=== PATIENT | female | born 1930 | race Caucasian/White ===

== ENCOUNTER 2018-04-08 08:38 | Emergency (ER) | payer OTHER ==
[2018-04-08 10:12] LABS: Absolute Lymphocytes (CBC) 1.6 K/uL (0.7-4.9); Basophils % 0.2 % (0-1.3); Eosinophils % 3.8 % (0-4.4); Hematocrit 39.9 % (36.0-45.0); MCH 29.8 pg (27.0-35.0); MCV 89.9 fL (80-100); MPV 8.3 fL (7.6-11.3); Monocytes % 12.9 % (3.3-12.3); RBC Red Blood Cell Count 4.44 M/uL (3.86-4.86)
[2018-04-08 10:24] LABS: Potassium 3.8 mmol/L (3.5-5.1)
[2018-04-08 10:25] LABS: Albumin 3.1 g/dL (3.4-5.0); Bilirubin Direct 0.1 mg/dL (0-0.2); Bilirubin Total 0.5 mg/dL (0.2-1.0); Protein, Total 7.7 g/dL (6.4-8.2)
[2018-04-08] MEDS ORDERED: DOXYCYCLINE 100 MG CAP PO ONE (10:40)
[2018-04-08] MEDS ORDERED: NA CHLORIDE 0.9% 1,000 ML ONE (10:40)
--- NOTE | 2018-04-08 11:47 | ER ---
Nurse's Notes [facility] Name: Noreen Willson Age: 87 yrs Sex: Female : 1930 Arrival Date: 04/08/2018 Time: 08:43 Bed 4 Private MD: Diagnosis: Dehydration;Urinary tract infection, site not specified Presentation: 04/08 08:43 Presenting complaint: EMS states: Pt was seen at Dr. Stevenson's on Wednesday for UTI and jl7 dehydration. Dr. Stevenson's orders were 1 gram Merrem IVPB bid x12 days. Today she's c/o diarrhea with an excessive foul odor. Transition of care: [facility]. Onset of symptoms was April 04, 2018. Risk Assessment: Do you want to hurt yourself or someone else? Patient reports no desire to harm self or others. Initial Sepsis Screen: Does the patient meet any 2 criteria? No. Patient's initial sepsis screen is negative. Does the patient have a suspected source of infection? No. Patient's initial sepsis screen is negative. Care prior to arrival: None. 08:43 Method Of Arrival: EMS: [facility] jl7 08:43 Acuity: RUBY 3 jl7 Historical: - Allergies: 08:52 No Known Allergies; jl7 - Home Meds: 08:52 acetaminophen 500 mg Oral tab 1 tab every 3 hours [Active]; Benadryl 25 mg Oral cap jl7 [Active]; bisoprolol-hydrochlorothiazide 10-6.25 mg Oral tab 1 tab once daily [Active]; digoxin 125 mcg Oral tab 1 tab once daily [Active]; docusate sodium 100 mg Oral cap 1 cap once daily [Active]; glimepiride 2 mg Oral tab twice daily [Active]; isosorbide mononitrate 30 mg Oral Tb24 1 tab once daily [Active]; Klor-Con M20 20 mEq Oral TbTQ 1 tab once daily [Active]; losartan 100 mg Oral tab 1 tab once daily [Active]; metformin 500 mg Oral tab 0.5 tab 2 times per day [Active]; Xarelto 20 mg oral tab 1 tab once daily [Active]; - PMHx: 08:52 Anxiety; Atrial Fib; Dementia; Diabetes - NIDDM; Hypertension; jl7 - Immunization history:: Adult Immunizations up to date. - Social history:: Smoking status: Patient/guardian denies using tobacco. - Ebola Screening: : No symptoms or risks identified at this time. Screenin:00 Abuse screen: Denies threats or abuse. Denies injuries from another. Nutritional jl7 screening: No deficits noted. Tuberculosis screening: No symptoms or risk factors identified. Fall Risk No fall in past 12 months (0 pts). Secondary diagnosis (15 points) Alzheimer's, dementia, IV access (20 points). Ambulatory Aid- None/Bed Rest/Nurse Assist (0 pts). Gait- Normal/Bed Rest/Wheelchair (0 pts) Mental Status- Overestimates/Forgets Limitations (15 pts.). Total Magallanes Fall Scale indicates High Risk Score (45 or more points). Fall prevention measures have been instituted. Side Rails Up X 2 Placed Close to Nursing Station Frequent Obs/Assessments Occuring Family Present and informed to notify staff if the need to leave the bedside As available patient and family educated on Fall Prevention Program and Strategies. Assessment: 09:00 General: Appears in no apparent distress. uncomfortable, Behavior is calm, cooperative, jl7 appropriate for age. Pain: Denies pain. Neuro: Level of Consciousness is awake, alert, obeys commands, Oriented to person. Cardiovascular: Patient's skin is warm and dry. Respiratory: Airway is patent Respiratory effort is even, unlabored, Respiratory pattern is regular, symmetrical. GI: Patient currently denies nausea, vomiting, Parent/caregiver reports the patient having diarrhea. : Parent/caregiver report the patient having UTI. EENT: No signs and/or symptoms were reported regarding the EENT system. Derm: Skin is pink, warm \T\ dry. Musculoskeletal: No signs and/or symptoms reported regarding the musculoskeletal system. 10:00 Reassessment: No changes from previously documented assessment. Patient and/or family jl7 updated on plan of care and expected duration. Pain level reassessed. Patient is alert, oriented x 3, equal unlabored respirations, skin warm/dry/pink. 10:44 Reassessment: Checked pt for incontinence, pt is clean and dry. jl7 11:30 Reassessment: No changes from previously documented assessment. Patient and/or family jl7 updated on plan of care and expected duration. Pain level reassessed. Patient is alert, oriented x 3, equal unlabored respirations, skin warm/dry/pink. Vital Signs: 08:52 BP 118 / 96; Pulse 92; Resp 16 S; Temp 98.4(O); Pulse Ox 92% on R/A; jl7 09:30 BP 126 / 57; Pulse 86; Resp 18 S; Pulse Ox 97% on R/A; jl7 10:08 BP 141 / 68; Pulse 94; Resp 20 S; Pulse Ox 98% on R/A; Pain 0/10; jl7 10:45 BP 129 / 81; Pulse 89; Resp 16; Pulse Ox 100% ; jl7 11:45 BP 125 / 75; Pulse 85; Resp 16; Pulse Ox 100% on R/A; jl7 12:30 BP 126 / 80; Pulse 85; Resp 16; Pulse Ox 100% ; jl7 ED Course: 08:43 Patient arrived in ED. iw 08:43 Mark Rodriguez RN is Primary Nurse. jl7 08:44 Missael Ortiz PA is PHCP. jr8 08:44 Manish Alfaro MD is Attending Physician. jr8 08:48 Triage completed. jl7 08:52 Arm band placed on right wrist. jl7 09:00 Patient has correct armband on for positive identification. Placed in gown. Bed in low jl7 position. Call light in reach. Side rails up X2. frame polisher on. Pulse ox on. NIBP on. Warm blanket given. 09:00 Maintain EMS IV. Dressing intact. Good blood return noted. Site clean \T\ dry. Gauge \T\ jl 7 site: 20 Left AC. 09:45 Initial lab(s) drawn, by co, sent to lab. jl7 11:46 Maximiliano Stevenson MD is Referral Physician. jr8 12:36 No provider procedures requiring assistance completed. IV discontinued, intact, jl7 bleeding controlled, No redness/swelling at site. Pressure dressing applied. Administered Medications: 10:41 Drug: NS 0.9% 1000 ml Route: IV; Rate: 1000 ml; Site: left antecubital; jl7 11:45 Follow up: Response: No adverse reaction; IV Status: Completed infusion jl7 10:41 Drug: Doxycycline 100 mg Route: PO; jl7 11:45 Follow up: Response: No adverse reaction jl7 Outcome: 11:47 Discharge ordered by . jr8 12:36 Discharged to home via wheelchair, with family. jl7 12:36 Condition: stable 12:36 Discharge instructions given to patient, family, Instructed on discharge instructions, follow up and referral plans. medication usage, Demonstrated understanding of instructions, follow-up care, medications, Prescriptions given X 1. 12:37 Patient left the ED. iw Signatures: Diane Hickey RN RN iw Missael Ortiz PA PA jr8 Mark Rodriguez RN RN jl7 Corrections: (The following items were deleted from the chart) 08:55 08:52 BP 188 / 96; Pulse 92bpm; Resp 16bpm; Spontaneous; Pulse Ox 92% RA; Temp 98.4F jl7 Oral; jl7
--- NOTE | 2018-04-08 11:47 | EDPHYS ---
Physician Documentation [facility] Name: Noreen Willson Age: 87 yrs Sex: Female : 1930 Arrival Date: 04/08/2018 Time: 08:43 Bed 4 Private MD: ED Physician Manish Alfaro HPI: 04/08 08:59 This 87 yrs old Female presents to ER via EMS with complaints of UTI/Diarrhea.jrMarques 08:59 Patients daughter stated that she had recent urine culture for UTI. Stated that her PCP jr8 wanted her shipped from senior care to ED for PICC line placement and IV antibiotics. Stated that for the past week has also had diarrhea that is foul smelling. Denies recent antibiotic use . Severity of symptoms: At their worst the symptoms were moderate in the emergency department the symptoms are unchanged. The patient has experienced a previous episode. The patient has been recently seen by a physician:. Historical: - Allergies: 08:52 No Known Allergies; jl7 - Home Meds: 08:52 acetaminophen 500 mg Oral tab 1 tab every 3 hours [Active]; Benadryl 25 mg Oral cap jl7 [Active]; bisoprolol-hydrochlorothiazide 10-6.25 mg Oral tab 1 tab once daily [Active]; digoxin 125 mcg Oral tab 1 tab once daily [Active]; docusate sodium 100 mg Oral cap 1 cap once daily [Active]; glimepiride 2 mg Oral tab twice daily [Active]; isosorbide mononitrate 30 mg Oral Tb24 1 tab once daily [Active]; Klor-Con M20 20 mEq Oral TbTQ 1 tab once daily [Active]; losartan 100 mg Oral tab 1 tab once daily [Active]; metformin 500 mg Oral tab 0.5 tab 2 times per day [Active]; Xarelto 20 mg oral tab 1 tab once daily [Active]; - PMHx: 08:52 Anxiety; Atrial Fib; Dementia; Diabetes - NIDDM; Hypertension; jl7 - Immunization history:: Adult Immunizations up to date. - Social history:: Smoking status: Patient/guardian denies using tobacco. - Ebola Screening: : No symptoms or risks identified at this time. ROS: 08:59 Eyes: Negative for injury, pain, redness, and discharge, ENT: Negative for injury, jr8 pain, and discharge, Neck: Negative for injury, pain, and swelling, Cardiovascular: Negative for chest pain, palpitations, and edema, Respiratory: Negative for shortness of breath, cough, wheezing, and pleuritic chest pain, Back: Negative for injury and pain, MS/Extremity: Negative for injury and deformity, Skin: Negative for injury, rash, and discoloration, Neuro: Negative for headache, weakness, numbness, tingling, and seizure. 08:59 Abdomen/GI: Positive for diarrhea, Negative for abdominal pain, nausea, vomiting, abdominal cramps, abdominal distension, anorexia, dysphagia, hematemesis, black/tarry stool, rectal pain, rectal bleeding, bowel incontinence, flatulence. 08:59 : Positive for urinary symptoms. Exam: 08:59 Eyes: Pupils equal round and reactive to light, extra-ocular motions intact. Lids and jr8 lashes normal. Conjunctiva and sclera are non-icteric and not injected. Cornea within normal limits. Periorbital areas with no swelling, redness, or edema. ENT: Nares patent. No nasal discharge, no septal abnormalities noted. Tympanic membranes are normal and external auditory canals are clear. Oropharynx with no redness, swelling, or masses, exudates, or evidence of obstruction, uvula midline. Mucous membranes moist. Neck: Trachea midline, no thyromegaly or masses palpated, and no cervical lymphadenopathy. Supple, full range of motion without nuchal rigidity, or vertebral point tenderness. No Meningismus. Cardiovascular: Regular rate and rhythm with a normal S1 and S2. No gallops, murmurs, or rubs. Normal PMI, no JVD. No pulse deficits. Respiratory: Lungs have equal breath sounds bilaterally, clear to auscultation and percussion. No rales, rhonchi or wheezes noted. No increased work of breathing, no retractions or nasal flaring. Abdomen/GI: Soft, non-tender, with normal bowel sounds. No distension or tympany. No guarding or rebound. No evidence of tenderness throughout. Back: No spinal tenderness. No costovertebral tenderness. Full range of motion. Skin: Warm, dry with normal turgor. Normal color with no rashes, no lesions, and no evidence of cellulitis. MS/ Extremity: Pulses equal, no cyanosis. Neurovascular intact. Full, normal range of motion. 08:59 Neuro: Orientation: to person, Mentation: able to follow commands, slow to respond, confused, Cranial nerves: CN I not tested, CN II- XII are normal as tested, extraocular movements are intact, Motor: moves all fours, Sensation: no obvious gross deficits, baseline dementia history . Vital Signs: 08:52 BP 118 / 96; Pulse 92; Resp 16 S; Temp 98.4(O); Pulse Ox 92% on R/A; jl7 09:30 BP 126 / 57; Pulse 86; Resp 18 S; Pulse Ox 97% on R/A; jl7 10:08 BP 141 / 68; Pulse 94; Resp 20 S; Pulse Ox 98% on R/A; Pain 0/10; jl7 10:45 BP 129 / 81; Pulse 89; Resp 16; Pulse Ox 100% ; jl7 11:45 BP 125 / 75; Pulse 85; Resp 16; Pulse Ox 100% on R/A; jl7 12:30 BP 126 / 80; Pulse 85; Resp 16; Pulse Ox 100% ; jl7 MDM: 08:44 Patient medically screened. jr8 10:35 Data reviewed: vital signs, nurses notes, lab test result(s). Data reviewed: diagnostic jr8 data from outside facility, urinalysis, bacteruria. Data interpreted: Pulse oximetry: on room air is 98 %. Counseling: I had a detailed discussion with the patient and/or guardian regarding: the historical points, exam findings, and any diagnostic results supporting the discharge/admit diagnosis, lab results. ED course: Patient is sensitive to both doxycycline and fosfomycin. No need for PICC line and IV antibiotics. . 11:45 ED course: Patient has not had bowel movement. Will need to be collected by [facility] if they jr want stool sample and culture. Patient intravenously hydrated. Will send back to [facility] with antibiotics for UTI. 04/08 08:52 Order name: CBC with Diff; Complete Time: 10:33 jr8 04/08 08:52 Order name: Basic Metabolic Panel; Complete Time: 10:33 jr8 04/08 08:56 Order name: IV; Complete Time: 09:05 jr8 04/08 08:56 Order name: LFT's; Complete Time: 10:33 jr8 Administered Medications: 10:41 Drug: NS 0.9% 1000 ml Route: IV; Rate: 1000 ml; Site: left antecubital; jl7 11:45 Follow up: Response: No adverse reaction; IV Status: Completed infusion jl7 10:41 Drug: Doxycycline 100 mg Route: PO; jl7 11:45 Follow up: Response: No adverse reaction jl7 Disposition: 17:43 Co-signature as Attending Physician, Manish Alfaro MD I agree with the assessment and kdr plan of care. Disposition: 04/08/18 11:47 Discharged to Home. Impression: Dehydration, Urinary tract infection, site not specified. - Condition is Stable. - Discharge Instructions: Dehydration, Elderly, Urinary Tract Infection, Adult. - Prescriptions for Doxycycline Monohydrate 100 mg Oral Tablet - take 1 tablet by ORAL route every 12 hours for 10 days; 20 tablet. - Medication Reconciliation Form, Thank You Letter, Antibiotic Education, Prescription Opioid Use form. - Follow up: Maximiliano Stevenson MD; When: 2 - 3 days; Reason: Recheck today's complaints, Continuance of care, Re-evaluation by your physician. - Problem is new. - Symptoms have improved. Signatures: Dispatcher [employer] EDMS Manish Alfaro MD MD kdr Diane Hickey RN RN iw Missael Ortiz PA PA jr8 Mark Rodriguez RN RN jl7 Corrections: (The following items were deleted from the chart) 12:37 11:47 04/08/2018 11:47 Discharged to Home. Impression: Dehydration; Urinary tract iw infection, site not specified. Condition is Stable. Forms are Medication Reconciliation Form, Thank You Letter, Antibiotic Education, Prescription Opioid Use. Follow up: Maximiliano Stevenson; When: 2 - 3 days; Reason: Recheck today's complaints, Continuance of care, Re-evaluation by your physician. Problem is new. Symptoms have improved. jr8
[2018-04-08 12:40] VITALS: TEMP 98.4
[2018-04-08 12:44] VITALS: BP 129/81; O2SAT 100
== END 2018-04-08 12:37 | disposition home or self-care (01) ==
LOC: ER 08:38
DX: N39.0 Urinary tract infection, site not specified (principal); E86.0 Dehydration; I10 Essential (primary) hypertension; E11.9 Type 2 diabetes mellitus without complications; I48.91 Unspecified atrial fibrillation; F41.9 Anxiety disorder, unspecified; Z79.02 Long term (current) use of antithrombotics/antiplatelets
CPT/HCPCS: 36415; 80048; 80076; 85025; 96360; 99284; J7030

== ENCOUNTER 2018-05-25 19:28 | Inpatient (IN) | payer OTHER ==
[2018-05-25] MEDS ORDERED: NA CHLORIDE 0.9% 1,000 ML ONE (20:11)
[2018-05-25 20:48] LABS: Absolute Monocytes 0.7 K/uL (0.1-1.3); Absolute Neutrophil 14.6 K/uL (1.8-8.0); Basophils % 0.3 % (0-1.3); Eosinophils % 0.5 % (0-4.4); Hematocrit 34.1 % (36.0-45.0); Lymphocytes % 6.1 % (15.3-44.8); MCH 30.2 pg (27.0-35.0); MCV 89.9 fL (80-100); MPV 7.9 fL (7.6-11.3); Monocytes % 4.3 % (3.3-12.3); RBC Red Blood Cell Count 3.79 M/uL (3.86-4.86)
--- NOTE | 2018-05-25 20:56 | EDPHYS ---
Physician Documentation [facility] Name: Noreen Willson Age: 87 yrs Sex: Female : 1930 Arrival Date: 05/25/2018 Time: 19:38 Bed 6 Private MD: ED Physician Ayo Zhang HPI: 05/25 19:57 This 87 yrs old Female presents to ER via Unassigned with complaints of Low genie Blood Sugar. 19:57 The patient or guardian reports altered mental status, generalized weakness. Onset: The genie symptoms/episode began/occurred just prior to arrival. Associated signs and symptoms: Pertinent positives: anorexia. Current symptoms: In the emergency department the patient's symptoms are unchanged from the initial presentation. The patient has not experienced similar symptoms in the past. Historical: - Allergies: 19:46 No Known Allergies; lp1 - Home Meds: 19:46 acetaminophen 500 mg Oral tab 2 tabs PRN for Fever, Pain [Active]; Benadryl 25 mg Oral lp1 cap 1 cap PRN for Insomnia [Active]; bisoprolol-hydrochlorothiazide 10-6.25 mg Oral tab 1 tab once daily for Hypertension [Active]; digoxin 125 mcg Oral tab 1 tab once daily [Active]; docusate sodium 100 mg Oral cap 1 cap PRN for Constipation [Active]; glimepiride 2 mg Oral tab 1 tab twice daily for Type 2 Diabetes Mellitus [Active]; isosorbide mononitrate 30 mg Oral Tb24 1 tab once daily [Active]; Klor-Con M20 20 mEq Oral TbTQ 1 tab once daily [Active]; losartan 100 mg Oral tab 1 tab once daily [Active]; metformin 500 mg Oral tab 0.5 tab 2 times per day [Active]; Miralax 17 gram/dose Oral powd PRN for Constipation [Active]; Xarelto 20 mg Oral tab 1 tab once daily [Active]; 19:48 Macrobid 100 mg Oral cap 1 cap every 12 hours [Active]; lp1 - PMHx: 19:46 Anxiety; Atrial Fib; Dementia; Diabetes - NIDDM; Hypertension; lp1 - PSHx: 19:46 pacemaker; lp1 - Immunization history:: Adult Immunizations up to date. - Social history:: Smoking status: unknown. - Family history:: not pertinent. - Ebola Screening: : No symptoms or risks identified at this time. ROS: 19:57 Constitutional: Negative for fever, chills, and weight loss, Eyes: Negative for injury, genie pain, redness, and discharge, ENT: Negative for injury, pain, and discharge, Neck: Negative for injury, pain, and swelling, Cardiovascular: Negative for chest pain, palpitations, and edema, Respiratory: Negative for shortness of breath, cough, wheezing, and pleuritic chest pain, Abdomen/GI: Negative for abdominal pain, nausea, vomiting, diarrhea, and constipation, Back: Negative for injury and pain, : Negative for injury, bleeding, discharge, and swelling, MS/Extremity: Negative for injury and deformity, Skin: Negative for injury, rash, and discoloration, Psych: Negative for depression, anxiety, suicide ideation, homicidal ideation, and hallucinations, Allergy/Immunology: Negative for hives, rash, and allergies, Endocrine: Negative for neck swelling, polydipsia, polyuria, polyphagia, and marked weight changes, Hematologic/Lymphatic: Negative for swollen nodes, abnormal bleeding, and unusual bruising. 19:57 Neuro: Positive for altered mental status, weakness. Exam: 19:57 Constitutional: This is a well developed, well nourished patient who is awake, alert, genie and in no acute distress. Head/Face: Normocephalic, atraumatic. Eyes: Pupils equal round and reactive to light, extra-ocular motions intact. Lids and lashes normal. Conjunctiva and sclera are non-icteric and not injected. Cornea within normal limits. Periorbital areas with no swelling, redness, or edema. ENT: Nares patent. No nasal discharge, no septal abnormalities noted. Tympanic membranes are normal and external auditory canals are clear. Oropharynx with no redness, swelling, or masses, exudates, or evidence of obstruction, uvula midline. Mucous membranes moist. Neck: Trachea midline, no thyromegaly or masses palpated, and no cervical lymphadenopathy. Supple, full range of motion without nuchal rigidity, or vertebral point tenderness. No Meningismus. Chest/axilla: Normal chest wall appearance and motion. Nontender with no deformity. No lesions are appreciated. Cardiovascular: Regular rate and rhythm with a normal S1 and S2. No gallops, murmurs, or rubs. Normal PMI, no JVD. No pulse deficits. Respiratory: Lungs have equal breath sounds bilaterally, clear to auscultation and percussion. No rales, rhonchi or wheezes noted. No increased work of breathing, no retractions or nasal flaring. Abdomen/GI: Soft, non-tender, with normal bowel sounds. No distension or tympany. No guarding or rebound. No evidence of tenderness throughout. Back: No spinal tenderness. No costovertebral tenderness. Full range of motion. Skin: Warm, dry with normal turgor. Normal color with no rashes, no lesions, and no evidence of cellulitis. MS/ Extremity: Pulses equal, no cyanosis. Neurovascular intact. Full, normal range of motion. Psych: Awake, alert, with orientation to person, place and time. Behavior, mood, and affect are within normal limits. 19:57 Neuro: Orientation: to person, Not oriented to place, time, Mentation: slow to respond, Memory: unable to test, Cranial nerves: no acute changes, Motor: moves all fours, Sensation: unable to test, Deep tendon reflexes are 2+ (normal) in the bilateral brachioradialis, bicep, tricep and patellar and Achilles tendons, seizure activity, is not displayed by the patient. Vital Signs: 19:38 BP 154 / 97; Pulse 78; Resp 20 S; Temp 96.8(TE); Pulse Ox 98% on R/A; cc3 20:00 BP 152 / 106; Pulse 80; Resp 22 S; Pulse Ox 98% on R/A; cc3 21:15 BP 159 / 81; Pulse 81; Resp 23 S; Pulse Ox 98% on R/A; cc3 22:28 BP 180 / 125; Pulse 85; Resp 18 S; Pulse Ox 100% on R/A; cc3 22:47 BP 164 / 133; Pulse 86; Resp 17; Pulse Ox 99% on R/A; cc3 23:00 BP 163 / 89; Pulse 81; Resp 20 S; Pulse Ox 99% on R/A; cc3 MDM: 19:42 Patient medically screened. [facility] 20:01 Data reviewed: vital signs, nurses notes, lab test result(s), EKG, radiologic studies, [facility] CT scan, plain films. 05/25 19:57 Order name: Basic Metabolic Panel [facility] 05/25 19:57 Order name: CBC with Diff [facility] 05/25 19:57 Order name: LFT's [facility] 05/25 19:57 Order name: Magnesium [facility] 05/25 19:57 Order name: NT PRO-BNP [facility] 05/25 19:57 Order name: PT-INR; Complete Time: 21:28 [facility] 05/25 19:57 Order name: Troponin (emerg Dept Use Only); Complete Time: 21:28 [facility] 05/25 19:57 Order name: Lipase; Complete Time: 21:28 [facility] 05/25 19:57 Order name: Blood Culture Adult (2) [facility] 05/25 19:57 Order name: Digoxin; Complete Time: 21:28 [facility] 05/25 19:58 Order name: Basic Metabolic Panel; Complete Time: 21:28 [facility] 05/25 19:58 Order name: CBC with Automated Diff [facility] 05/25 19:58 Order name: Liver (Hepatic) Function; Complete Time: 21:28 [facility] 05/25 19:58 Order name: Magnesium; Complete Time: 21:28 [facility] 05/25 19:57 Order name: XRAY Chest (1 view); Complete Time: 21:05 [facility] 05/25 19:57 Order name: EKG; Complete Time: 19:58 [facility] 05/25 19:57 Order name: Cardiac monitoring; Complete Time: 20:40 [facility] 05/25 19:57 Order name: EKG - Nurse/Tech; Complete Time: 20:40 [facility] 05/25 19:57 Order name: IV Saline Lock; Complete Time: 20:40 [facility] 05/25 19:57 Order name: Labs collected and sent; Complete Time: 20:46 [facility] 05/25 19:57 Order name: O2 Per Protocol; Complete Time: 20:40 [facility] 05/25 19:57 Order name: O2 Sat Monitoring; Complete Time: 20:40 [facility] 05/25 19:57 Order name: CT Head Brain wo Cont; Complete Time: 21:05 [facility] 05/25 19:58 Order name: NT PRO-BNP; Complete Time: 21:28 [facility] 05/25 21:34 Order name: Urine Dipstick--Ancillary (enter results) [place] 05/25 21:56 Order name: Urine Dipstick-Ancillary [facility] 05/25 22:05 Order name: CBC Smear Scan [facility] 05/25 19:57 Order name: Owen; Complete Time: 20:55 [facility] Administered Medications: Discontinued: NS 0.9% 1000 ml IV at 1 bolus Per protocol; 1000 mL bolus 20:30 Drug: NS 0.9% 1000 ml Route: IV; Rate: 1 bolus; Site: right forearm; cc3 21:06 Follow up: IV Status: Order to discontinue infusion; IV Intake: 150ml bp 21:10 Drug: Rocephin - (cefTRIAXone) 1 grams Route: IVPB; Infused Over: 30 mins; Site: right cc3 forearm; 21:30 Follow up: Response: No adverse reaction; IV Status: Completed infusion; IV Intake: [id number] 21:35 Drug: Magnesium Sulfate 1 grams Route: IVPB; Infused Over: 1 hrs; Site: right forearm; cc3 22:35 Follow up: Response: No adverse reaction; IV Status: Completed infusion cc3 Disposition: 05/25/18 20:56 Hospitalization ordered by Fatuma Molina for Inpatient Admission. Preliminary diagnosis are Altered mental status, unspecified, Atrial fibrillation and flutter, Weakness, Hypomagnesemia, Cystitis. - Bed requested for Telemetry/MedSurg (Inpatient). - Status is Inpatient Admission. cc3 - Condition is Fair. - Problem is new. - Symptoms have improved. UTI on Admission? Yes Signatures: Dispatcher [employer] EDMS Lachelle Lares RN RN Ayo Montelongo MD MD cha Pena, Laura, RN RN lp1 Rhoda Bradford cc3 Spencer Espino RN bp Corrections: (The following items were deleted from the chart) 21:30 20:56 Hospitalization Ordered by Fatuma Molina MD for Inpatient Admission. Preliminary genie diagnosis is Altered mental status, unspecified; Atrial fibrillation and flutter; Weakness. Bed requested for Telemetry/MedSurg (Inpatient). Status is Inpatient Admission. Condition is Fair. Problem is new. Symptoms have improved. UTI on Admission? No. genie 21:52 21:30 05/25/2018 20:56 Hospitalization Ordered by Fatuma Molina MD for Inpatient genie Admission. Preliminary diagnosis is Altered mental status, unspecified; Atrial fibrillation and flutter; Weakness; Hypomagnesemia. Bed requested for Telemetry/MedSurg (Inpatient). Status is Inpatient Admission. Condition is Fair. Problem is new. Symptoms have improved. UTI on Admission? No. genie 22:48 21:52 05/25/2018 20:56 Hospitalization Ordered by Fatuma Molina MD for Inpatient kl Admission. Preliminary diagnosis is Altered mental status, unspecified; Atrial fibrillation and flutter; Weakness; Hypomagnesemia; Cystitis. Bed requested for Telemetry/MedSurg (Inpatient). Status is Inpatient Admission. Condition is Fair. Problem is new. Symptoms have improved. UTI on Admission? Yes. [facility] 22:50 22:48 05/25/2018 20:56 Hospitalization Ordered by Fatuma Molina MD for Inpatient kl Admission. Preliminary diagnosis is Altered mental status, unspecified; Atrial fibrillation and flutter; Weakness; Hypomagnesemia; Cystitis. Bed requested for Telemetry/MedSurg (Inpatient). Status is Inpatient Admission. Condition is Fair. Problem is new. Symptoms have improved. UTI on Admission? Yes. 23:30 22:50 05/25/2018 20:56 Hospitalization Ordered by Fatuma Molina MD for Inpatient cc3 Admission. Preliminary diagnosis is Altered mental status, unspecified; Atrial fibrillation and flutter; Weakness; Hypomagnesemia; Cystitis. Bed requested for Telemetry/MedSurg (Inpatient). Status is Inpatient Admission. Condition is Fair. Problem is new. Symptoms have improved. UTI on Admission? Yes. kl
--- NOTE | 2018-05-25 20:56 | ER ---
Nurse's Notes [facility] Name: Noreen Willson Age: 87 yrs Sex: Female : 1930 Arrival Date: 05/25/2018 Time: 19:38 Bed 6 Private MD: Diagnosis: Altered mental status, unspecified;Atrial fibrillation and flutter;Weakness;Hypomagnesemia;Cystitis Presentation: 05/25 19:38 Presenting complaint: EMS states: altered mental status and high blood sugar. lp1 Transition of care: [facility]. Onset of symptoms was May 25, 2018. Risk Assessment: Do you want to hurt yourself or someone else? Patient reports no desire to harm self or others. Initial Sepsis Screen: Does the patient meet any 2 criteria? Altered Mental Status. No. Patient's initial sepsis screen is negative. Does the patient have a suspected source of infection? Yes: Dysuria/Frequency/Urgency/UTI. Care prior to arrival: IV initiated. 22 GA, in the right forearm. 19:38 Method Of Arrival: EMS: [facility] lp1 19:38 Acuity: RUBY 3 lp1 Triage Assessment: 19:38 General: Appears uncomfortable, Behavior is calm, quiet, confused. Pain: Unable to use cc3 pain scale. Patient is disoriented. EENT: No signs and/or symptoms were reported regarding the EENT system. Neuro: Level of Consciousness is awake, alert, confused, Oriented to none. Cardiovascular: Denies chest pain, Patient's skin is warm and dry. Rhythm is atrial fibrillation. Respiratory: Airway is patent Respiratory effort is even, unlabored, Respiratory pattern is regular, symmetrical. GI: Abdomen is round non-distended. : Parent/caregiver report the patient having patient's daughter said the patient is on antibiotic treatment for UTI. Derm: Skin is fragile, with poor turgor Skin is mottled, Rash noted that is on bilateral medial thigh and on the lower abdominal area. Bruising that is on right forearm purple skin discoloration on bilateral lower legs and feet and on right hand. Musculoskeletal: noted internal rotation of bilateral feet. Historical: - Allergies: 19:46 No Known Allergies; lp1 - Home Meds: 19:46 acetaminophen 500 mg Oral tab 2 tabs PRN for Fever, Pain [Active]; Benadryl 25 mg Oral lp1 cap 1 cap PRN for Insomnia [Active]; bisoprolol-hydrochlorothiazide 10-6.25 mg Oral tab 1 tab once daily for Hypertension [Active]; digoxin 125 mcg Oral tab 1 tab once daily [Active]; docusate sodium 100 mg Oral cap 1 cap PRN for Constipation [Active]; glimepiride 2 mg Oral tab 1 tab twice daily for Type 2 Diabetes Mellitus [Active]; isosorbide mononitrate 30 mg Oral Tb24 1 tab once daily [Active]; Klor-Con M20 20 mEq Oral TbTQ 1 tab once daily [Active]; losartan 100 mg Oral tab 1 tab once daily [Active]; metformin 500 mg Oral tab 0.5 tab 2 times per day [Active]; Miralax 17 gram/dose Oral powd PRN for Constipation [Active]; Xarelto 20 mg Oral tab 1 tab once daily [Active]; 19:48 Macrobid 100 mg Oral cap 1 cap every 12 hours [Active]; lp1 - PMHx: 19:46 Anxiety; Atrial Fib; Dementia; Diabetes - NIDDM; Hypertension; lp1 - PSHx: 19:46 pacemaker; lp1 - Immunization history:: Adult Immunizations up to date. - Social history:: Smoking status: unknown. - Family history:: not pertinent. - Ebola Screening: : No symptoms or risks identified at this time. Screenin:38 Abuse screen: Denies threats or abuse. Denies injuries from another. Nutritional cc3 screening: No deficits noted. Tuberculosis screening: No symptoms or risk factors identified. Fall Risk Secondary diagnosis (15 points) dementia, impaired mobility, Ambulatory Aid- None/Bed Rest/Nurse Assist (0 pts). Gait- Impaired (20 pts.). Mental Status- Overestimates/Forgets Limitations (15 pts.). Assessment: 19:40 Reassessment: see triage assessment. cc3 19:41 Reassessment: with out of hospital DNR form from the packet provided by assisted cc3 [facility] to the EMS. 20:00 Reassessment: Patient's daughter named Mary Beth gave her mobile number [phone]. cc3 20:30 Reassessment: Chest xray done bedside. cc3 20:56 Reassessment: Patient for admission under Dr. Ingram, waiting for admission orders. cc3 Patient came back from CT scan department, CT scan of head done as ordered. 21:06 Reassessment: Patient appears in no apparent distress at this time. Dr. Zhang cc3 ordered to discontinue the normal saline infusion. 22:49 Reassessment: Patient appears in no apparent distress at this time. patient comfortably cc3 sleeping, kept undisturbed. 23:00 Reassessment: Patient appears in no apparent distress at this time. Room assigned to cc3 202, called med-surg extension at 1224 and was told to call again after 5-10 minutes. 23:10 Reassessment: Handed over the report to YORDAN Araujo for continuity of care and cc3 management. Patient left ER vitally stable by stretcher escorted by chief cardiopulmonary technologist. Vital Signs: 19:38 BP 154 / 97; Pulse 78; Resp 20 S; Temp 96.8(TE); Pulse Ox 98% on R/A; cc3 20:00 BP 152 / 106; Pulse 80; Resp 22 S; Pulse Ox 98% on R/A; cc3 21:15 BP 159 / 81; Pulse 81; Resp 23 S; Pulse Ox 98% on R/A; cc3 22:28 BP 180 / 125; Pulse 85; Resp 18 S; Pulse Ox 100% on R/A; cc3 22:47 BP 164 / 133; Pulse 86; Resp 17; Pulse Ox 99% on R/A; cc3 23:00 BP 163 / 89; Pulse 81; Resp 20 S; Pulse Ox 99% on R/A; cc3 ED Course: 19:38 Patient arrived in ED. ds1 19:38 Arm band placed on right wrist. cc3 19:40 Maintain EMS IV. Gauge \T\ site: 22 at the right forearm. cc3 19:40 Patient has correct armband on for positive identification. Placed in gown. Bed in low cc3 position. Call light in reach. Side rails up X2. 19:42 Ayo Zhang MD is Attending Physician. genie 20:00 Triage completed. lp1 20:30 CT completed. Patient tolerated procedure well. Patient moved to CT via stretcher. mw3 Patient moved back from CT. 20:41 XRAY Chest (1 view) In Process Unspecified. EDMS 20:43 CT Head Brain wo Cont In Process Unspecified. EDMS 20:53 Divinski, Ianir, MD is Hospitalizing Provider. [facility] 20:54 Owen cath inserted, using sterile technique, [address], balloon inflated, to de gravity drainage, urine specimen collected. 23:10 No provider procedures requiring assistance completed. Patient admitted, IV remains in cc3 place. Administered Medications: Discontinued: NS 0.9% 1000 ml IV at 1 bolus Per protocol; 1000 mL bolus 20:30 Drug: NS 0.9% 1000 ml Route: IV; Rate: 1 bolus; Site: right forearm; cc3 21:06 Follow up: IV Status: Order to discontinue infusion; IV Intake: 150ml bp 21:10 Drug: Rocephin - (cefTRIAXone) 1 grams Route: IVPB; Infused Over: 30 mins; Site: right cc3 forearm; 21:30 Follow up: Response: No adverse reaction; IV Status: Completed infusion; IV Intake: [id number] 21:35 Drug: Magnesium Sulfate 1 grams Route: IVPB; Infused Over: 1 hrs; Site: right forearm; cc3 22:35 Follow up: Response: No adverse reaction; IV Status: Completed infusion cc3 Intake: 21:06 IV: 150ml; Total: 150ml. bp 21:30 IV: 50ml; Total: 200ml. cc3 Outcome: 20:56 Decision to Hospitalize by Provider. genie 23:10 Admitted to Med/surg accompanied by [facility], via stretcher, room 202, with chart, Report cc3 called to YORDAN Araujo 23:10 Condition: stable 23:10 Instructed on the need for admit. 23:30 Patient left the ED. cc3 Signatures: Dispatcher [employer] EDDC Ayo Zhang MD MD cha Sanford, Demi ds1 Caprice Espinosa, RN RN lp1 Mirtha Goncalves mt, Brian RN RN Rozina Miller mw3 Rhoda Bradford cc3 Corrections: (The following items were deleted from the chart) 22:09 20:53 Reassessment: Patient for admission under Dr. Ingram, waiting for admission cc3 orders. cc3 22:31 20:53 Reassessment: Patient for admission under Dr. Ingram, waiting for admission cc3 orders. Patient came back from CT scan department, CT scan of head done as ordered. cc3 23:26 23:00 Reassessment: Room assigned to 202, called med-surg extension at 1224 and was cc3 told to call again after 5-10 minutes. cc3 23:36 19:38 Transition of care: [facility] lp1 cc3
--- NOTE | 2018-05-25 21:02 | RAD REPORT ---
EXAM DESCRIPTION: CT - Head Brain Wo Cont - 05/25/2018 8:43 pm CLINICAL HISTORY: MENTAL STATUS CHANGE Drowsiness COMPARISON: HEAD BRAIN W O CONTRAST dated 07/09/2011 TECHNIQUE: All CT scans are performed using dose optimization technique as appropriate and may inclu de automated exposure control or mA/KV adjustment according to patient size. FINDINGS: No intracranial hemorrhage, hydrocephalus or extra-axial fluid collection.Advanced general ized brain atrophy is present with advanced periventricular and deep white matter chronic microvascul ar ischemic changes.No areas of brain edema or evidence of midline shift. The paranasal sinuses and mastoids are clear. The calvarium is intact. Mild vertebral atherosclerosis . IMPRESSION: No acute intracranial abnormality.
[2018-05-25] MEDS ORDERED: D50W 25 GM/50 ML SYRINGE IV PRN (21:03)
[2018-05-25] MEDS ORDERED: GLUCAGON 1 MG/VIAL IM PRN (21:03)
--- NOTE | 2018-05-25 21:03 | RAD REPORT ---
EXAM DESCRIPTION: RAD - Chest Single View - 05/25/2018 8:41 pm CLINICAL HISTORY: COUGH Chest pain. COMPARISON: Chest Single View dated 08/17/2017; Chest Single View dated 03/25/2017; CHEST SINGLE VIEW dated 07/09/2011 FINDINGS: Portable technique limits examination quality. Mild interstitial pulmonary edema is seen. The heart is moderately enlarged in size with a dual lead pacer device present. No displaced fractures.Aortic atherosclerosis. IMPRESSION: Mild CHF versus volume overload pattern.
[2018-05-25 21:10] LABS: Protime INR 2.34
[2018-05-25] MEDS ORDERED: CEFTRIAXONE 1000 MG/VIAL ONE (21:18)
[2018-05-25] MEDS ORDERED: NA CHLORIDE 0.9% 50 ML IV ONE (21:18)
[2018-05-25 21:23] LABS: ALT/SGPT 17 U/L (12-78); AST/SGOT 19 U/L (15-37); Albumin 3.2 g/dL (3.4-5.0); Alkaline Phosphatase 72 U/L (45-117); BUN Blood Urea Nitrogen 23 mg/dL (7-18); Bicarbonate 26 mmol/L (21-32); Bilirubin Direct 0.1 mg/dL (0-0.2); Bilirubin Total 0.6 mg/dL (0.2-1.0); Glucose Level 279 mg/dL (74-106); Lipase 105 U/L (73-393); Magnesium 1.5 mg/dL (1.8-2.4); NT PRO-BNP 2833 pg/mL (<450); Potassium 4.4 mmol/L (3.5-5.1); Protein, Total 8.3 g/dL (6.4-8.2); Sodium Level 137 mmol/L (136-145); Troponin (Emerg Dept Use Only) < 0.02 ng/mL (0.0-0.045)
[2018-05-25] MEDS ORDERED: MAGNESIUM SULFATE 1 gm IVPB 1 GM/100 ML BAG IV ONE (21:42)
[2018-05-25 21:55] LABS: Urine Blood 1+ (NEG); Urine Glucose 3+ (NEG); Urine Protein 3+ (NEG); Urine Specific Gravity 1.025 (1.005-1.030)
[2018-05-25 22:05] LABS: Blood Morphology Comment NOT SEEN (NOT SEEN); Platelet Estimate ADEQ; Urine White Blood Cell Casts OK
--- NOTE | 2018-05-25 22:12 | P.HP ---
Certification for Inpatient Patient admitted to: Observation With expected LOS: <2 Midnights Practitioner: I am a practitioner with admitting privileges, knowledge of patient current condition, hospital course, and medical plan of care. Services: Services provided to patient in accordance with Admission requirements found in Title 42 Section 412.3 of the Code of Federal Regulations Patient History Date of Service: 05/25/18 Reason for admission: Acute encephalopathy History of Present Illness: Ms Willson is a 7-year-old woman with history of diabetes mellitus types 2 insulin-dependent, atrial fibrillation, hypertension, dementia, resident of a local skilled nursing. This afternoon the patient became more lethargic, weak and sleepy than usual. There is no history of fever or chills. No cough or shortness of breath. No nausea, vomiting or diarrhea either. Lab work remarkable for leukocytosis 16.5 K, chest-x-ray possible volume overload, UA abnormal consistent with UTI. At my encounter, the patient remained obtunded responsive to verbal and noxious stimulus. Allergies No Known Allergies Allergy (Verified 12/06/14 10:01) Home medications list reviewed: Yes Home Medications: Digoxin [Lanoxin*] 1 tab PO DAILY 10/19/14 Glimepiride [Amaryl] 0.5 tab PO DAILY 10/19/14 Losartan Potassium [Cozaar] 1 tab PO DAILY 10/19/14 Simvastatin 1 tab PO BEDTIME 10/19/14 Sitagliptin Phosphate [Januvia*] 1 tab PO DAILY 10/19/14 Warfarin Sodium [Coumadin*] 1 mg PO DAILY 5 PM 12/06/14 Warfarin Sodium [Coumadin*] 2 mg PO T,TH,S 12/06/14 Warfarin Sodium [Coumadin*] 4 mg PO M,,12/06/14 - Past Medical/Surgical History Diabetic: No -: Diabetic -: HTN -: Afib -: Hyperlipidemia -: Hysterectomy - Family History Family History: Reviewed- Non-Contributory - Social History Alcohol use: No CD- Drugs: No Caffeine use: Yes Place of Residence: Longterm Review of Systems 10-point ROS is otherwise unremarkable Physical Examination - Physical Exam General: In no apparent distress, Other (obtunded) HEENT: Atraumatic, PERRLA, Mucous membr. moist/pink, EOMI, Sclerae nonicteric Neck: Supple, 2+ carotid pulse no bruit, No LAD, Without JVD or thyroid abnormality Respiratory: Clear to auscultation bilaterally, Normal air movement, Crackles/ rales Cardiovascular: Regular rate/rhythm, Normal S1 S2 Gastrointestinal: Normal bowel sounds, No tenderness Musculoskeletal: No tenderness Integumentary: No rashes Neurological: Normal strength at 5/5 x4 extr, Sensation intact, Normal affect, Dementia Lymphatics: No axilla or inguinal lymphadenopathy - Studies Laboratory Data (last 24 hrs) 05/25/18 20:30: PT 27.9 H, INR 2.34 05/25/18 20:30: WBC 16.5 H, Hgb 11.4 L, Hct 34.1 L, Plt Count 254 05/25/18 20:30: Sodium 137, Potassium 4.4, BUN 23 H, Creatinine 1.00, Glucose 279 H, Magnesium 1.5 L, Total Bilirubin 0.6, AST 19, ALT 17, Alkaline Phosphatase 72, Lipase 105 Assessment and Plan - Plan Assessment: 1. Acute encephalopathy 2. UTI 3. Diabetes mellitus 4. Dementia 5. Chronic AFib Plan: Will admit the patient to the hospital in order to start IV antibiotic for UTI, will also need gentle hydration. Since the patient is obtunded, at this point she is not safe order diet. Will consult speech therapist for swallow evaluation. Blood and urine cultures are in process. - Advance Directives Does patient have a Living Will: No Does patient have a Durable POA for Healthcare: Yes
[2018-05-25] MEDS ORDERED: ACETAMINOPHEN 500 MG TAB PO PRN (23:43)
[2018-05-25] MEDS ORDERED: ONDANSETRON 4 MG/2 ML VIAL IV PRN (23:43)
[2018-05-26] MEDS: NA CHLORIDE 0.9% 1,000 ML IV SCH ×3 (00:12→16:15)
[2018-05-26 03:29] LABS: Urine Appearance TURBID; Urine Bilirubin NEGATIVE (NEG); Urine Blood 2+ (NEG); Urine Color YELLOW; Urine Glucose NEGATIVE (NEG); Urine Protein 2+ (NEG); Urine Specific Gravity 1.015 (1.005-1.030); Urine Urobilinogen 0.2 mg/dL (0.2-1.0); Urine pH 6.5 (5.0-7.0)
[2018-05-26 03:35] LABS: Urine Microscopic Reflex ORDER UMIC
[2018-05-26 03:47] LABS: Urine Bacteria LOADED /HPF (<20); Urine Culture Reflex Order REFLEXED; Urine RBC <5 /HPF (NONE SEEN)
[2018-05-26 05:06] LABS: Absolute Lymphocytes (CBC) 1.3 K/uL (0.7-4.9); Absolute Monocytes 0.9 K/uL (0.1-1.3); Absolute Neutrophil 9.9 K/uL (1.8-8.0); Basophils % 0.4 % (0-1.3); Eosinophils % 2.5 % (0-4.4); Hematocrit 32.4 % (36.0-45.0); Lymphocytes % 10.7 % (15.3-44.8); MCH 30.4 pg (27.0-35.0); MCV 87.9 fL (80-100); MPV 7.8 fL (7.6-11.3); Monocytes % 7.2 % (3.3-12.3); RBC Red Blood Cell Count 3.68 M/uL (3.86-4.86)
[2018-05-26 05:32] LABS: Magnesium 1.8 mg/dL (1.8-2.4); Potassium 3.8 mmol/L (3.5-5.1)
[2018-05-26] MEDS: HYDRALAZINE HCL 20 MG/ML VIAL IV PRN (05:45)
[2018-05-26] MEDS ORDERED: MAGNESIUM SULFATE 1 gm IVPB 1 GM/100 ML BAG IV ONE (07:00)
[2018-05-26] MEDS ORDERED: INSULIN -REGULAR HUMAN 50 UNIT/0.5 ML ML SQ SCH ×2 (07:30→09:19)
[2018-05-26] MEDS ORDERED: KCL 20 MEQ/100 mL IVPB 20 MEQ/100 ML BAG IV SCH (08:15)
[2018-05-26] MEDS ORDERED: CEFTRIAXONE 1 GM/NS 50 ML 1 GM/50 ML BAG IV SCH (09:00)
[2018-05-26] MEDS: INSULIN -REGULAR HUMAN 50 UNIT/0.5 ML ML SQ SCH ×3 (11:30→21:00)
--- NOTE | 2018-05-26 11:34 | P.PN ---
Subjective Date of Service: 05/26/18 Chief Complaint: Acute encephalopathy Patient seen and examined at bedside with RN. Chart reviewed. Case discussed with family member at bedside. Currently patient is disoriented at this time. At baseline patient does have dementia however able to recognize the daughter. This morning daughter has no complaints to offer states that she has frequent UTIs and causes this acute exacerbation of her dementia at that time. Review of Systems 10-point ROS is otherwise unremarkable Physical Examination - Vital Signs Temperature: 98.1 F Blood Pressure: 135/64 Pulse: 79 Respirations: 17 Pulse Ox (%): 98 - Physical Exam General: Alert, In no apparent distress, Demented, Confused HEENT: Atraumatic, PERRLA, EOMI Neck: Supple, JVD not distended Respiratory: Clear to auscultation bilaterally, Normal air movement Cardiovascular: Regular rate/rhythm, Normal S1 S2 Gastrointestinal: Normal bowel sounds, No tenderness Musculoskeletal: No tenderness Integumentary: No rashes Neurological: Normal speech, Normal tone, Normal affect Lymphatics: No axilla or inguinal lymphadenopathy - Studies Laboratory Data (last 24 hrs) 05/25/18 20:30: PT 27.9 H, INR 2.34 05/25/18 20:30: WBC 16.5 H, Hgb 11.4 L, Hct 34.1 L, Plt Count 254 05/25/18 20:30: Sodium 137, Potassium 4.4, BUN 23 H, Creatinine 1.00, Glucose 279 H, Magnesium 1.5 L, Total Bilirubin 0.6, AST 19, ALT 17, Alkaline Phosphatase 72, Lipase 105 Medications List Reviewed: Yes Assessment And Plan - Plan Assessment and plan 1. Acute toxic metabolic encephalopathy -most likely secondary to UTI -at baseline patient does have dementia however currently acutely ill -today still disoriented -will monitor closely 2. UTI -history of recurrent UTIs with E. coli -currently on IV antibiotics -will continue until cultures and sensitivity results 3. Diabetes mellitus type 2 without any complications -insulin sliding scale 4. Dementia -at baseline patient is alert and oriented x1 does recognize person and self 5. Chronic AFib: -will restart home medication at this time. Currently rate and rhythm control Disposition: Awaiting clinical improvement at this time Discharge Plan: Residential Plan to discharge in: 48 Hours - Code Status/Comfort Care Code Status Assessed: Yes Critical Care: No
[2018-05-26] MEDS ORDERED: DOCUSATE NA 100 MG CAP PO PRN (11:37)
[2018-05-26] MEDS: CEFTRIAXONE/SWI 1gm 1 GM/10 ML SYR IV SCH (21:04)
[2018-05-27] MEDS: NA CHLORIDE 0.9% 1,000 ML IV SCH ×4 (01:50→15:43)
[2018-05-27 06:04] LABS: BUN Blood Urea Nitrogen 14 mg/dL (7-18); Bicarbonate 26 mmol/L (21-32); Glucose Level 125 mg/dL (74-106); Magnesium 1.6 mg/dL (1.8-2.4); Potassium 3.7 mmol/L (3.5-5.1); Sodium Level 145 mmol/L (136-145)
--- NOTE | 2018-05-27 06:58 | EKG ---
Test Date: 2018-05-25 Test Time: 20:13:46 Sheet Fed Printer: MODESTA MEASUREMENT RESULTS: Intervals: Rate: 88 MO: QRSD: 86 QT: 348 QTc: 421 Trevor: P: MO: QRS: 75 T: 10 INTERPRETIVE STATEMENTS: Demand pacemaker, interpretation is based on intrinsic rhythm Atrial fibrillation with premature ventricular or aberrantly conducted complexes ST & T wave abnormality, consider anterior ischemia or digitalis effect Abnormal ECG Compared to ECG 03/25/2017 09:38:33 Ventricular premature complex(es) now present ST (T wave) deviation still present Possible ischemia still present Electronically Signed On 05-27-18 06:55:11 CDT by Donnie Young
[2018-05-27] MEDS ORDERED: MAGNESIUM SULFATE 1 gm IVPB 1 GM/100 ML BAG IV ONE (07:15)
[2018-05-27] MEDS: INSULIN -REGULAR HUMAN 50 UNIT/0.5 ML ML SQ SCH ×4 (07:30→20:09)
[2018-05-27] MEDS ORDERED: KCL 20 MEQ/100 mL IVPB 20 MEQ/100 ML BAG IV SCH (08:30)
[2018-05-27] MEDS ORDERED: POLYETHYL GLY 3350 17 GM/DOSE PO PRN (09:00)
[2018-05-27] MEDS: BISOPROLOL/HCTZ 5/6.25MG TAB PO SCH (09:04)
[2018-05-27] MEDS: BISOPROLOL 5 MG TABLET PO SCH (09:04)
[2018-05-27] MEDS: RIVAROXABAN 20 MG TABLET PO SCH (09:05)
[2018-05-27] MEDS: ISOSORBIDE MONO SR 30 MG TAB PO SCH (09:05)
[2018-05-27] MEDS: DIGOXIN 0.125 MG TABLET PO SCH (09:05)
[2018-05-27] MEDS: LOSARTAN POTASSIUM 50 MG TABLET PO SCH (09:05)
--- NOTE | 2018-05-27 12:09 | P.PN ---
Subjective Date of Service: 05/27/18 Chief Complaint: Acute encephalopathy Patient seen and examined at bedside with RN. Chart reviewed. Case discussed with family member at bedside. Currently patient is disoriented. Pt was able to feed herself but does not recognize who she is. Review of Systems 10-point ROS is otherwise unremarkable Physical Examination - Vital Signs Temperature: 98.4 F Blood Pressure: 173/79 Pulse: 83 Respirations: 17 Pulse Ox (%): 98 - Physical Exam General: Alert, In no apparent distress, Confused HEENT: Atraumatic, PERRLA, EOMI Neck: Supple, JVD not distended Respiratory: Clear to auscultation bilaterally, Normal air movement Cardiovascular: Regular rate/rhythm, Normal S1 S2 Gastrointestinal: Normal bowel sounds, No tenderness Musculoskeletal: No tenderness Integumentary: No rashes Neurological: Normal speech, Normal tone, Normal affect Lymphatics: No axilla or inguinal lymphadenopathy - Studies Laboratory Data (last 24 hrs) 05/27/18 05:30: Sodium 145, Potassium 3.7, BUN 14, Creatinine 0.50 L, Glucose 125 H, Magnesium 1.6 L Microbiology Data (last 24 hrs): 05/25/18 20:55 Blood - Blood Anaerobic Blood Culture - Final Medications List Reviewed: Yes Assessment And Plan - Plan Assessment and plan 1. Acute toxic metabolic encephalopathy -most likely secondary to UTI -at baseline patient does have dementia however currently acutely ill -today still disoriented -will monitor closely 2. UTI -history of recurrent UTIs with E. coli -currently on IV antibiotics -will continue until cultures and sensitivity results 3. Diabetes mellitus type 2 without any complications -insulin sliding scale 4. Dementia -at baseline patient is alert and oriented x1 does recognize person and self 5. Chronic AFib: -will restart home medication at this time. Currently rate and rhythm control Disposition: Awaiting clinical improvement at this time Discharge Plan: Long-Term Plan to discharge in: 48 Hours - Code Status/Comfort Care Code Status Assessed: Yes Critical Care: No
[2018-05-27] MEDS: CEFTRIAXONE/SWI 1gm 1 GM/10 ML SYR IV SCH (20:02)
[2018-05-27] MEDS: GLUCERNA SHAKE 237 ML CAN PO SCH (20:05)
[2018-05-28] MEDS: NA CHLORIDE 0.9% 1,000 ML IV SCH (00:41)
[2018-05-28] MEDS: HYDRALAZINE HCL 20 MG/ML VIAL IV PRN ×2 (03:29→23:59)
[2018-05-28 06:31] LABS: BUN Blood Urea Nitrogen 13 mg/dL (7-18); Bicarbonate 25 mmol/L (21-32); Glucose Level 147 mg/dL (74-106); Potassium 3.4 mmol/L (3.5-5.1); Sodium Level 138 mmol/L (136-145)
[2018-05-28 06:33] LABS: Magnesium 1.4 mg/dL (1.8-2.4)
[2018-05-28] MEDS ORDERED: Magnesium Sulfate 2gm IVPB 2 G/50 ML BAG IV ONE (06:48)
[2018-05-28] MEDS ORDERED: POTASSIUM 25 MEQ EFFERV TAB PO ONE (06:49)
[2018-05-28] MEDS: INSULIN -REGULAR HUMAN 50 UNIT/0.5 ML ML SQ SCH ×4 (07:30→20:15)
[2018-05-28] MEDS: BISOPROLOL 5 MG TABLET PO SCH (08:39)
[2018-05-28] MEDS: DIGOXIN 0.125 MG TABLET PO SCH (08:40)
[2018-05-28] MEDS: BISOPROLOL/HCTZ 5/6.25MG TAB PO SCH (08:40)
[2018-05-28] MEDS: LOSARTAN POTASSIUM 50 MG TABLET PO SCH (08:40)
[2018-05-28] MEDS: ISOSORBIDE MONO SR 30 MG TAB PO SCH (08:40)
[2018-05-28] MEDS: RIVAROXABAN 20 MG TABLET PO SCH (08:40)
[2018-05-28] MEDS: GLUCERNA SHAKE 237 ML CAN PO SCH ×2 (08:41→20:32)
--- NOTE | 2018-05-28 11:12 | P.PN ---
Subjective Date of Service: 05/28/18 Chief Complaint: Dementia and ESBL E coli Subjective: Improving (Patient's condition is stable) Review of Systems is unable to be obtained Physical Examination - Vital Signs Temperature: 98.2 F Blood Pressure: 125/85 Pulse: 99 Respirations: 17 Pulse Ox (%): 95 - Physical Exam General: Alert, In no apparent distress Neck: Supple Respiratory: Clear to auscultation bilaterally Cardiovascular: No edema, Normal pulses - Studies Medications List Reviewed: Yes Assessment & Plan - Problems (Diagnosis) (1) UTI (urinary tract infection) Onset Date: 05/26/18 Current Visit: Yes Status: Acute Plan: Patient has E coli, ESBL start on meropenem (2) Acute encephalopathy Onset Date: 05/26/18 Current Visit: Yes Status: Acute Plan: Patient's encephalopathy has improved patient is not coherent history of AFib and is fully anti coagulated add p.o. thymine ambulate
[2018-05-28] MEDS: THIAMINE HCL 100 MG TABLET PO SCH (12:03)
[2018-05-28] MEDS: Meropenem 500 MG in NA CHLORIDE 0.9% 100 ML IV SCH ×2 (12:03→17:17)
[2018-05-29] MEDS: Meropenem 500 MG in NA CHLORIDE 0.9% 100 ML IV SCH ×3 (00:01→18:36)
[2018-05-29] MEDS ORDERED: LIDOCAINE 1% MPF 5 ML VIAL IM PRN (02:00)
[2018-05-29] MEDS ORDERED: SODIUM CHLORIDE 0.9% 10ML INJ IV PRN ×2 (02:00)
[2018-05-29 06:12] LABS: BUN Blood Urea Nitrogen 11 mg/dL (7-18); Bicarbonate 28 mmol/L (21-32); Glucose Level 183 mg/dL (74-106); Potassium 3.7 mmol/L (3.5-5.1); Sodium Level 137 mmol/L (136-145)
[2018-05-29] MEDS ORDERED: KCL 20 MEQ/100 mL IVPB 20 MEQ/100 ML BAG IV SCH (07:00)
[2018-05-29] MEDS: INSULIN -REGULAR HUMAN 50 UNIT/0.5 ML ML SQ SCH ×4 (07:30→20:17)
--- NOTE | 2018-05-29 08:36 | RAD REPORT ---
EXAM DESCRIPTION: RAD - Chest Single View - 05/28/2018 11:30 pm CLINICAL HISTORY: PICC line placement The final report was delayed due to PACs and/or Fluency technical problems that existed at the time of the study or during expected/usual dictation time period. It is unknown if a verbal report was pro vided prior to this dictation. COMPARISON: Portable chest May 25 TECHNIQUE: AP portable chest image was obtained 2147 hours . FINDINGS: Right upper extremity PICC line has been placed. Tip is in the mid SVC. Patchy interstitial and alveolar lung parenchymal opacification present and stable. Heart size and va sculature are stable. No measurable pleural effusion and no pneumothorax. No gross bony abnormality s een. No acute aortic findings suspected. IMPRESSION: Right upper extremity PICC line in place with tip mid SVC. Lung parenchymal opacification has not changed.
[2018-05-29] MEDS: GLUCERNA SHAKE 237 ML CAN PO SCH ×2 (09:00→20:13)
[2018-05-29] MEDS: BISOPROLOL/HCTZ 5/6.25MG TAB PO SCH (09:00)
[2018-05-29] MEDS: SODIUM CHLORIDE 0.9% 10ML INJ IV SCH ×2 (09:00→20:12)
[2018-05-29] MEDS: RIVAROXABAN 20 MG TABLET PO SCH ×2 (09:00→10:05)
[2018-05-29] MEDS: LOSARTAN POTASSIUM 50 MG TABLET PO SCH (10:04)
[2018-05-29] MEDS: DIGOXIN 0.125 MG TABLET PO SCH (10:05)
[2018-05-29] MEDS: ISOSORBIDE MONO SR 30 MG TAB PO SCH (10:05)
[2018-05-29] MEDS: BISOPROLOL 5 MG TABLET PO SCH (10:06)
[2018-05-29] MEDS: THIAMINE HCL 100 MG TABLET PO SCH (10:06)
--- NOTE | 2018-05-29 10:22 | P.PN ---
Subjective Date of Service: 05/29/18 Chief Complaint: Dementia and ESBL E coli Subjective: Improving (Doing well no new complaints eating satisfactorily) Review of Systems is unable to be obtained Physical Examination - Vital Signs Temperature: 97 F Blood Pressure: 137/76 Pulse: 90 Respirations: 16 Pulse Ox (%): 95 - Physical Exam General: Alert Respiratory: Clear to auscultation bilaterally Cardiovascular: No edema, Normal S1 S2 - Studies Microbiology Data (last 24 hrs): 05/26/18 03:20 Clean Catch Urine [place] Count - Final >100,000 CFU/ML. 05/26/18 03:20 Clean Catch Urine - Final Escherichia Coli Enterococcus Faecalis Medications List Reviewed: Yes Assessment & Plan - Problems (Diagnosis) (1) UTI (urinary tract infection) Onset Date: 05/26/18 Current Visit: Yes Status: Acute Plan: Patient has ESBL a PICC line was put in yesterday continue with meropenem patient is nonverbal blood pressure was elevated yesterday also has Enterococcus in the urine at oral amoxicillin labs reviewed Qualifiers: Urinary tract infection type: acute cystitis (2) Acute encephalopathy Onset Date: 05/26/18 Current Visit: Yes Status: Acute Plan: Patient's encephalopathy has improved patient is not coherent history of AFib and is fully anti coagulated add p.o. thymine ambulate
[2018-05-30] MEDS: Meropenem 500 MG in NA CHLORIDE 0.9% 100 ML IV SCH ×3 (00:15→17:30)
[2018-05-30 05:38] LABS: BUN Blood Urea Nitrogen 19 mg/dL (7-18); Bicarbonate 30 mmol/L (21-32); Glucose Level 176 mg/dL (74-106); Potassium 4.3 mmol/L (3.5-5.1); Sodium Level 140 mmol/L (136-145)
[2018-05-30] MEDS: INSULIN -REGULAR HUMAN 50 UNIT/0.5 ML ML SQ SCH ×4 (07:30→20:24)
[2018-05-30] MEDS: RIVAROXABAN 20 MG TABLET PO SCH (09:00)
[2018-05-30] MEDS: LOSARTAN POTASSIUM 50 MG TABLET PO SCH (10:00)
[2018-05-30] MEDS: SODIUM CHLORIDE 0.9% 10ML INJ IV SCH ×2 (10:00→20:21)
[2018-05-30] MEDS: GLUCERNA SHAKE 237 ML CAN PO SCH ×2 (10:00→20:24)
[2018-05-30] MEDS: BISOPROLOL/HCTZ 5/6.25MG TAB PO SCH (10:00)
[2018-05-30] MEDS: DIGOXIN 0.125 MG TABLET PO SCH (10:00)
[2018-05-30] MEDS: THIAMINE HCL 100 MG TABLET PO SCH (10:00)
[2018-05-30] MEDS: ISOSORBIDE MONO SR 30 MG TAB PO SCH (10:00)
--- NOTE | 2018-05-30 12:51 | P.PN ---
Subjective Date of Service: 05/30/18 Chief Complaint: Dementia and ESBL E coli Patient seen and examined at bedside with RN. Chart reviewed. Case discussed with family member at bedside. Currently patient is at baseline. Review of Systems 10-point ROS is otherwise unremarkable Physical Examination - Vital Signs Temperature: 97.6 F Blood Pressure: 163/75 Pulse: 91 Respirations: 18 Pulse Ox (%): 96 - Physical Exam General: Alert, In no apparent distress, Demented HEENT: Atraumatic, PERRLA, EOMI Neck: Supple, JVD not distended Respiratory: Clear to auscultation bilaterally, Normal air movement Cardiovascular: Regular rate/rhythm, Normal S1 S2 Gastrointestinal: Normal bowel sounds, No tenderness Musculoskeletal: No tenderness Integumentary: No rashes Neurological: Normal speech, Normal tone, Normal affect Lymphatics: No axilla or inguinal lymphadenopathy - Studies Medications List Reviewed: Yes Assessment And Plan - Plan Assessment and plan 1. Acute toxic metabolic encephalopathy -most likely secondary to UTI -at baseline now 2. UTI -history of recurrent UTIs with E. coli multi-drug resistant organism -currently on IV meropenem -will need IV [facility]em [facility] 3. Diabetes mellitus type 2 without any complications -insulin sliding scale 4. Dementia -at baseline now 5. Chronic AFib: -will restart home medication at this time. Currently rate and rhythm control Disposition: Awaiting arrangements for antibiotics at the [facility]. Will discharge once antibiotics has been set up. Discharge Plan: Retirement Plan to discharge in: 24 Hours - Code Status/Comfort Care Code Status Assessed: Yes Critical Care: No
[2018-05-31] MEDS: Meropenem 500 MG in NA CHLORIDE 0.9% 100 ML IV SCH ×3 (00:15→18:03)
[2018-05-31] MEDS: INSULIN -REGULAR HUMAN 50 UNIT/0.5 ML ML SQ SCH ×4 (07:30→20:17)
[2018-05-31] MEDS: LOSARTAN POTASSIUM 50 MG TABLET PO SCH (11:10)
[2018-05-31] MEDS: RIVAROXABAN 20 MG TABLET PO SCH (11:10)
[2018-05-31] MEDS: GLUCERNA SHAKE 237 ML CAN PO SCH ×2 (11:15→20:15)
[2018-05-31] MEDS: ISOSORBIDE MONO SR 30 MG TAB PO SCH (11:15)
[2018-05-31] MEDS: DIGOXIN 0.125 MG TABLET PO SCH (11:16)
[2018-05-31] MEDS: BISOPROLOL/HCTZ 5/6.25MG TAB PO SCH (11:17)
[2018-05-31] MEDS: THIAMINE HCL 100 MG TABLET PO SCH (11:17)
[2018-05-31] MEDS: SODIUM CHLORIDE 0.9% 10ML INJ IV SCH ×2 (11:17→20:15)
--- NOTE | 2018-05-31 13:19 | P.PN ---
Subjective Date of Service: 05/31/18 Chief Complaint: Dementia and ESBL E coli Patient seen and examined at bedside with RN. Chart reviewed. Case discussed with family member at bedside. Currently patient is at baseline. Review of Systems 10-point ROS is otherwise unremarkable Physical Examination - Vital Signs Temperature: 98.3 F Blood Pressure: 159/68 Pulse: 98 Respirations: 16 Pulse Ox (%): 95 - Physical Exam General: Alert, In no apparent distress HEENT: Atraumatic, PERRLA, EOMI Neck: Supple, JVD not distended Respiratory: Clear to auscultation bilaterally, Normal air movement Cardiovascular: Regular rate/rhythm, Normal S1 S2 Gastrointestinal: Normal bowel sounds, No tenderness Musculoskeletal: No tenderness Integumentary: No rashes Neurological: Normal speech, Normal tone, Normal affect Lymphatics: No axilla or inguinal lymphadenopathy - Studies Microbiology Data (last 24 hrs): 05/25/18 20:55 Blood - Blood Aerobic Blood Culture - Final No growth in 5 days. 05/25/18 20:55 Blood - Blood Anaerobic Blood Culture - Final 05/25/18 20:30 Blood - Blood Aerobic Blood Culture - Final No growth in 5 days. 05/25/18 20:30 Blood - Blood Anaerobic Blood Culture - Final No growth in 5 days. Medications List Reviewed: Yes Assessment And Plan - Plan Assessment and plan 1. Acute toxic metabolic encephalopathy -most likely secondary to UTI -at baseline now 2. UTI -history of recurrent UTIs with E. coli multi-drug resistant organism -currently on IV meropenem -will need IV meropenem for total 14 days at the [facility] 3. Diabetes mellitus type 2 without any complications -insulin sliding scale 4. Dementia -at baseline now 5. Chronic AFib: -will restart home medication at this time. Currently rate and rhythm control Disposition: Awaiting arrangements for antibiotics at the [facility]. Will discharge once antibiotics has been set up. Discharge Plan: Care Home Plan to discharge in: 24 Hours - Code Status/Comfort Care Code Status Assessed: Yes Critical Care: No
[2018-06-01] MEDS: Meropenem 500 MG in NA CHLORIDE 0.9% 100 ML IV SCH ×3 (00:31→17:35)
[2018-06-01 06:47] VITALS: BMI 20.7
[2018-06-01] MEDS: INSULIN -REGULAR HUMAN 50 UNIT/0.5 ML ML SQ SCH ×4 (07:30→22:38)
[2018-06-01] MEDS: LOSARTAN POTASSIUM 50 MG TABLET PO SCH (08:42)
[2018-06-01] MEDS: RIVAROXABAN 20 MG TABLET PO SCH (08:42)
[2018-06-01] MEDS: BISOPROLOL/HCTZ 5/6.25MG TAB PO SCH (08:43)
[2018-06-01] MEDS: THIAMINE HCL 100 MG TABLET PO SCH (08:43)
[2018-06-01] MEDS: DIGOXIN 0.125 MG TABLET PO SCH (08:43)
[2018-06-01] MEDS: ISOSORBIDE MONO SR 30 MG TAB PO SCH (08:44)
[2018-06-01] MEDS: GLUCERNA SHAKE 237 ML CAN PO SCH ×2 (10:52→22:39)
[2018-06-01] MEDS: SODIUM CHLORIDE 0.9% 10ML INJ IV SCH ×2 (10:52→22:39)
--- NOTE | 2018-06-01 11:47 | P.PN ---
Subjective Date of Service: 06/01/18 Chief Complaint: Dementia and ESBL E coli Patient seen and examined at bedside with RN. Chart reviewed. Case discussed with family member at bedside. Currently patient is at baseline. Review of Systems 10-point ROS is otherwise unremarkable Physical Examination - Vital Signs Temperature: 98.7 F Blood Pressure: 150/72 Pulse: 87 Respirations: 20 Pulse Ox (%): 95 - Physical Exam General: Alert, In no apparent distress HEENT: Atraumatic, PERRLA, EOMI Neck: Supple, JVD not distended Respiratory: Clear to auscultation bilaterally, Normal air movement Cardiovascular: Regular rate/rhythm, Normal S1 S2 Gastrointestinal: Normal bowel sounds, No tenderness Musculoskeletal: No tenderness Integumentary: No rashes Neurological: Normal speech, Normal tone, Normal affect Lymphatics: No axilla or inguinal lymphadenopathy - Studies Medications List Reviewed: Yes Assessment And Plan - Plan Assessment and plan 1. Acute toxic metabolic encephalopathy -most likely secondary to UTI -at baseline now 2. UTI -history of recurrent UTIs with E. coli multi-drug resistant organism -currently on IV meropenem -will need IV meropenem for total 14 days at the [facility] 3. Diabetes mellitus type 2 without any complications -insulin sliding scale 4. Dementia -at baseline now 5. Chronic AFib: -will restart home medication at this time. Currently rate and rhythm control Disposition: Awaiting arrangements for antibiotics at the [facility]. Will discharge once antibiotics has been set up.
[2018-06-01] MEDS ORDERED: ALTEPLASE 2 MG/VIAL IV SCH (23:45)
[2018-06-02] MEDS ORDERED: WATER FOR INJ,STERILE 10 ML ONE ×2 (00:27→05:24)
[2018-06-02] MEDS ORDERED: NA CHLORIDE 0.9% 250 ML ONE (01:38)
[2018-06-02] MEDS: Meropenem 500 MG in NA CHLORIDE 0.9% 100 ML IV SCH ×2 (01:49→09:28)
[2018-06-02] MEDS ORDERED: ALTEPLASE 2 MG/VIAL IV ONE (05:00)
[2018-06-02] MEDS: INSULIN -REGULAR HUMAN 50 UNIT/0.5 ML ML SQ SCH ×2 (07:30→12:59)
[2018-06-02] MEDS: RIVAROXABAN 20 MG TABLET PO SCH (09:26)
[2018-06-02] MEDS: BISOPROLOL/HCTZ 5/6.25MG TAB PO SCH (09:27)
[2018-06-02] MEDS: DIGOXIN 0.125 MG TABLET PO SCH (09:27)
[2018-06-02] MEDS: LOSARTAN POTASSIUM 50 MG TABLET PO SCH (09:27)
[2018-06-02] MEDS: THIAMINE HCL 100 MG TABLET PO SCH (09:28)
[2018-06-02] MEDS: ISOSORBIDE MONO SR 30 MG TAB PO SCH (09:28)
[2018-06-02] MEDS: SODIUM CHLORIDE 0.9% 10ML INJ IV SCH (09:28)
[2018-06-02] MEDS: GLUCERNA SHAKE 237 ML CAN PO SCH (09:30)
[2018-06-02 10:59] VITALS: O2SAT 96
--- NOTE | 2018-06-02 12:00 | P.PN ---
Subjective Date of Service: 06/02/18 Chief Complaint: Dementia and ESBL E coli Patient seen and examined at bedside with RN. Chart reviewed. Case discussed with family member at bedside. Currently patient is at baseline. Review of Systems 10-point ROS is otherwise unremarkable Physical Examination - Vital Signs Temperature: 98 F Blood Pressure: 170/76 Pulse: 83 Respirations: 18 Pulse Ox (%): 96 - Physical Exam General: Alert, In no apparent distress HEENT: Atraumatic, PERRLA, EOMI Neck: Supple, JVD not distended Respiratory: Clear to auscultation bilaterally, Normal air movement Cardiovascular: Regular rate/rhythm, Normal S1 S2 Gastrointestinal: Normal bowel sounds, No tenderness Musculoskeletal: No tenderness Integumentary: No rashes Neurological: Normal speech, Normal tone, Normal affect Lymphatics: No axilla or inguinal lymphadenopathy - Studies Medications List Reviewed: Yes Assessment And Plan - Plan Assessment and plan 1. Acute toxic metabolic encephalopathy -most likely secondary to UTI -at baseline now 2. UTI -history of recurrent UTIs with E. coli multi-drug resistant organism -currently on IV meropenem -will need IV mer[facility]em [facility]. On 03/19 days here 3. Diabetes mellitus type 2 without any complications -insulin sliding scale 4. Dementia -at baseline now 5. Chronic AFib: -will restart home medication at this time. Currently rate and rhythm control Disposition: Awaiting arrangements for antibiotics at the [facility]. Will discharge once antibiotics has been set up. Discharge Plan: Intermediate Plan to discharge in: 48 Hours - Code Status/Comfort Care Code Status Assessed: Yes Critical Care: No
--- NOTE | 2018-06-02 14:16 | P.DS ---
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 Dementia behavioral disturbance: without behavioral disturbance Qualified Code(s): G30.0 - Alzheimer's disease with early onset; F02.80 - Dementia in other diseases classified elsewhere without behavioral disturbance (5) Diabetes Onset Date: 10/22/14 Current Visit: No Status: Chronic Qualifiers: Diabetes mellitus type: type 2 Diabetes mellitus [facility] insulin use: without [facility] use Diabetes mellitus complication status: without complication Qualified Code(s): E11.9 - Type 2 diabetes mellitus without complications (6) Hypertension Onset Date: 10/22/14 Current Visit: No Status: Chronic Qualifiers: Hypertension type: essential hypertension Qualified Code(s): I10 - Essential (primary) hypertension Brief History of Present Illness: Ms Willson is a 7-year-old woman with history of diabetes mellitus types 2 insulin-dependent, atrial fibrillation, hypertension, dementia, resident of a local skilled nursing. This afternoon the patient became more lethargic, weak and sleepy than usual. There is no history of fever or chills. No cough or shortness of breath. No nausea, vomiting or diarrhea either. Lab work remarkable for leukocytosis 16.5 K, chest-x-ray possible volume overload, UA abnormal consistent with UTI. At my encounter, the patient remained obtunded responsive to verbal and noxious stimulus. Hospital Course: Overall during the hospital stay patient remained stable The patient was initially admitted to the hospital for toxic encephalopathy along with UTI. Patient and her urine culture done here in the hospital which was consistent with multidrug resistant E. coli. Patient was started on IV meropenem. Patient at baseline does have dementia where she is really able to recognize her daughter intermittently. Patient's acute toxic encephalopathy did resolve and was bit baseline. At that time patient was going to be discharged back to the skilled nursing. [facility] was contacted and IV antibiotics was arranged for her. Patient had a PICC line placement here in the hospital. Patient was to continue taking total 14 days of IV antibiotics for her multidrug resistant E. coli. Family at bedside were educated extensively on the need to complete antibiotic course. Patient's family demonstrate understanding and patient was then discharged back to the skilled nursing under stable condition Vital Signs/Physical Exam: Temp Pulse Resp BP Pulse Ox 98 F 83 18 170/76 H 96 06/02/18 12:00 06/02/18 12:00 06/02/18 12:00 06/02/18 12:00 06/02/18 12:00 General: Alert, In no apparent distress, Demented HEENT: Atraumatic, PERRLA, EOMI Neck: Supple, JVD not distended Respiratory: Clear to auscultation bilaterally, Normal air movement Cardiovascular: Regular rate/rhythm, Normal S1 S2 Gastrointestinal: Normal bowel sounds, No tenderness Musculoskeletal: No tenderness Integumentary: No rashes Neurological: Normal speech, Normal tone, Normal affect Lymphatics: No axilla or inguinal lymphadenopathy Laboratory Data at Discharge: WBC 12.6 K/uL (4.3-10.9) H D 05/26/18 04:48 Hgb 11.2 g/dL (12.0-15.0) L 05/26/18 04:48 Hct 32.4 % (36.0-45.0) L 05/26/18 04:48 Plt Count 222 K/uL (152-406) 05/26/18 04:48 PT 27.9 SECONDS (9.5-12.5) H 05/25/18 20:30 INR 2.34 05/25/18 20:30 Sodium 140 mmol/L (136-145) 05/30/18 04:50 Potassium 4.3 mmol/L (3.5-5.1) 05/30/18 04:50 BUN 19 mg/dL (7-18) H 05/30/18 04:50 Creatinine 0.50 mg/dL (0.55-1.3) L 05/30/18 04:50 Glucose 176 mg/dL (74-106) H 05/30/18 04:50 Magnesium 2.1 mg/dL (1.8-2.4) D 05/28/18 15:40 Total Bilirubin 0.6 mg/dL (0.2-1.0) 05/25/18 20:30 AST 19 U/L (15-37) 05/25/18 20:30 ALT 17 U/L (12-78) 05/25/18 20:30 Alkaline Phosphatase 72 U/L (45-117) 05/25/18 20:30 Lipase 105 U/L (73-393) 05/25/18 20:30 Home Medications: Acetaminophen [Pain Relief] 500 mg PO BID PRN MDD 1000 05/26/18 Bisoprolol Fumarate/Hctz [Bisoprolol-Hctz 10-6.25 mg Tab] 1 each PO DAILY Digoxin [Lanoxin*] 125 mcg PO DAILY 05/26/18 Diphenhydramine [Benadryl*] 25 mg PO BEDTIME PRN PRN 05/26/18 Docusate [Colace Cap*] 100 mg PO PRN PRN 05/26/18 Glimepiride 2 mg PO BID 05/26/18 Isosorbide Mononitrate [Isosorbide Mononitrate ER] 30 mg PO DAILY 05/26/18 Losartan Potassium 100 mg PO DAILY 05/26/18 Metformin HCl [Glucophage*] 250 mg PO BID 05/26/18 Polyethylene Glycol 3350 [Miralax] 17 gm PO PRN PRN 05/26/18 Potassium Chloride [Klor-Con] 20 meq PO DAILY 05/26/18 Rivaroxaban [Xarelto] 20 mg PO DAILY 05/26/18 guaiFENesin [Robitussin 100MG/5ML*] 5 ml PO PRN PRN 05/26/18 Meropenem [Merrem*] 1 gm IV Q8H #24 vial 06/02/18 New Medications: Meropenem [Merrem*] 1 gm IV Q8H #24 vial Patient Discharge Instructions: Please f.u with PCP in 1 to 2 week post discharge. New medication. Meropenum 1g q8h for total of 8 more days Diet: ADA Activity: Ad dc
[2018-06-02 17:58] VITALS: BP 176/78; TEMP 98.5
== END 2018-06-02 17:20 | DRG 92 ==
LOC: ER 19:28 → ERHOLD 21:33 → 2ND 23:00 → OBSVTOIN 05-27 11:47
PROVIDERS: ADMIT Internal Medicine; ATTEND Family Medicine
PROC: 02HV33Z Insertion of Infusion Device into Superior Vena Cava, Percutaneous Approach (ICD-10-PCS; principal; 2018-05-28)
DX: G92 Toxic encephalopathy (principal); N30.00 Acute cystitis without hematuria; I48.2 Chronic atrial fibrillation; G30.0 Alzheimer's disease with early onset; F02.80 Dementia in other diseases classified elsewhere, unspecified severity, without behavioral disturbance, psychotic disturbance, mood disturbance, and anxiety; E11.9 Type 2 diabetes mellitus without complications; I10 Essential (primary) hypertension; B96.20 Unspecified Escherichia coli [E. coli] as the cause of diseases classified elsewhere; Z16.30 Resistance to unspecified antimicrobial drugs; Z79.84 Long term (current) use of oral hypoglycemic drugs; E78.5 Hyperlipidemia, unspecified; B95.2 Enterococcus as the cause of diseases classified elsewhere
CPT/HCPCS: 36415; 51702; 70450; 71045; 80048; 80076; 80162; 81003; 81015; 82962; 83690; 83735; 83880; 84484; 85025; 85610; 87040; 87077; 87086; 87088; 87186; 93005; 96361; 96365; 96367; 99285; G0378; J0360; J0696; J2997; J3475; J7030